=== PATIENT | female | born 1990 | race Caucasian/White ===

== ENCOUNTER 2020-04-07 22:24 | Emergency (ER) | payer MEDICAID ==
--- NOTE | 2020-04-07 23:06 | ER Document Report ---
ED General - General Chief Complaint: greenlandic Stated Complaint: CHEST PAIN Time Seen by Provider: 04/07/20 22:41 Primary Care Provider: JIAN CONLEY FNP-C [Primary Care Provider] - Follow up as needed - HPI Notes: Patient is a 30-year-old female who presents to the emergency department for evaluation of chest pain. She states she had in her left chest earlier today, thought it was just "hunger pains." She states she went out to dinner, had fried chicken. She states that on the way home she started having a severe heavy and sharp left-sided chest pain. It radiated up into her shoulder. She describes some associated shortness of breath. EMS administered aspirin, 2 sublingual nitroglycerin, which she states helped a small amount, as well as fentanyl, which resolved her pain. Patient states he has had pain similar to this in the past, but never this intense. She did feel some shortness of breath associated with it. She noted that her pain seemed to have gotten worse when her bra was removed. Patient states she did have a stress test approximately 1 year ago, and a negative heart catheterization approximately 5 years ago. - Related Data Allergies/Adverse Reactions: ketorolac [From Toradol] Allergy (Verified 04/07/20 22:56) prochlorperazine [From Compazine] Allergy (Verified 04/07/20 22:56) Home Medications: Zoloft, pro-air, Singulair, unknown anxiety medication Past Medical History - General Information source: Patient - Social History Smoking Status: Never Smoker Family History: CAD, DM, Hypertension, Other - "Blood clots" in grandfather, unsure where Patient has homicidal ideation: No Pulmonary Medical History: Reports: Hx Asthma EENT Medical History: Reports: Other - Seasonal allergies Psychiatric Medical History: Reports: Hx Anxiety, Hx Depression Past Surgical History: Reports: Hx Section Review of Systems - Review of Systems Cardiovascular: See HPI Respiratory: See HPI -: Yes All other systems reviewed and negative Physical Exam - Vital signs Vitals: Temp 98 F 04/07/20 22:25 - Notes Notes: This is an obese 30-year-old female who appears her stated age, no acute distress. Vital signs reviewed, please refer to chart. Head is normocephalic, atraumatic. Pupils equal round, reactive to light. Neck is supple without meningismus. Heart is regular rate and rhythm. Lungs are clear to auscultation bilaterally. Patient with pendulous breasts, tenderness to the left breast in the area of the patient's pain. I do not appreciate any skin changes or masses, but exam is limited by body habitus. Abdomen is soft, nontender, normoactive bowel sounds throughout. Extremities without cyanosis, clubbing. Posterior calves are nontender. Peripheral pulses are equal. Skin is warm and dry. Patient is awake, alert, neurological exam is nonfocal. Course - Re-evaluation Re-evalutation: 04/07/20 23:06 Patient presents to the emergency department for evaluation. This is likely breast pain. I talked to her at length about the fact that she should probably have a mammogram, that my physical exam was limited. She voiced understanding. Otherwise, her heart rate is mildly elevated. She does have a family history of blood clots. Will add d-dimer. I do not have a strong clinical suspicion at this time for pulmonary embolus. EKG is unremarkable, laboratory investigations pending. We will continue to monitor. 04/08/20 02:12 Patient's d-dimer is negative, laboratory investigations unremarkable, troponin undetectable x2. I do strongly suspect this is chest wall pain. She did have some breast tenderness. I encouraged her to follow-up and get a mammogram. She otherwise will be sent home with a prescription for anti-inflammatories and close follow-up. She is to return to the ED with worsening. 04/08/20 02:16 I was notified by telemetry that the patient's heart rate went up to 179. A strip was printed. To me this looks more like artifact. During this, the patient was up on the edge of the bed, talking on the phone, she had no complaints or concerns. No palpitations, no chest pain. Strip was mounted, again she is to follow-up. - Vital Signs Vital signs: Temp Pulse Resp BP Pulse Ox 98 F 23 H 113/88 H 100 04/07/20 22:25 04/08/20 00:01 04/08/20 00:01 04/08/20 00:01 - Laboratory Result Diagrams: 04/07/20 23:11 04/07/20 23:11 Laboratory results interpreted by me: 04/07/20 23:11 Sodium 135.8 L - Diagnostic Test Radiology reviewed: Reports reviewed Radiology results interpreted by me: 04/08/20 02:12 Chest X-Ray 04/07/20 22:41 IMPRESSION: 1. No acute pulmonary process identified. - EKG Interpretation by Me Additional EKG results interpreted by me: 04/07/20 23:05 Sinus mechanism, regular rate. Normal axis and intervals. No acute ST changes concerning for ischemia or infarction. Discharge - Discharge Clinical Impression: Chest wall pain, Breast pain, left Condition: Stable Disposition: HOME, SELF-CARE Instructions: Chest Pain of Unclear Cause ([facility]) Additional Instructions: Your pain seems to localize more to your breast. You should have a mammogram and follow-up. Your labs were normal today, your cardiac enzymes were negative twice. Your EKG does not show any acute changes. Take medication as prescrib ed. Follow-up with your primary care provider next week. Return to the emergency department with worsening or new concerning symptoms of any sort. Prescriptions: Naproxen [Naprosyn] 500 mg PO BID #20 tablet Referrals: JIAN CONLEY FNP-C [Primary Care Provider] - Follow up as needed
--- NOTE | 2020-04-07 23:14 | RADIOLOGY REPORT (SQ) ---
EXAM DESCRIPTION: XR CHEST 1 VIEW COMPLETED DATE/TME: 04/07/2020 22:41 CLINICAL HISTORY: Chest Pain COMPARISON: None. FINDINGS: Single frontal view of the chest. Cardiomediastinal silhouette: Normal size and contour. Lungs: No consolidation, pneumothorax, or pleural effusion. Bones: No acute osseous abnormality. Leads overlie the chest. Upper abdomen: No abnormality identified. IMPRESSION: 1. No acute pulmonary process identified.
[2020-04-07 23:28] LABS: ABSOLUTE EOSINOPHILS # (AUTO) 0.1 10^3/uL (0.0-0.6); ABSOLUTE LYMPHOCYTES (AUTO) 2.3 10^3/uL (0.5-4.7); ABSOLUTE MONOCYTES (AUTO) 0.6 10^3/uL (0.1-1.4); ABSOLUTE NEUT (AUTO) 4.6 10^3/uL (1.7-8.2); BASOPHILS % (AUTO) 0.6 % (0-2); EOSINOPHILS % (AUTO) 1.1 % (0-6); HEMATOCRIT 36.1 % (36.0-47.0); LYMPHOCYTES % (AUTO) 30.4 % (13-45); MEAN CORPUSCULAR HEMOGLOBIN 27.4 pg (27.0-33.4); MEAN CORPUSCULAR HGB CONC 33.3 g/dL (32.0-36.0); MEAN CORPUSCULAR VOLUME 82 fl (80-97); MONOCYTES % (AUTO) 8.1 % (3-13); PLATELET COUNT 180 10^3/uL (150-450); RED BLOOD COUNT 4.39 10^6/uL (3.72-5.28); RED CELL DISTRIBUTION WIDTH 13.5 % (11.5-14.0); SEGMENTED NEUTROPHILS % (AUTO) 59.8 % (42-78); TOTAL CELLS COUNTED % (AUTO) 100 %; WHITE BLOOD COUNT 7.7 10^3/uL (4.0-10.5)
[2020-04-07] MEDS ORDERED: OXYCODONE-ACETAMINOPHEN 5-325 MG TABLET PO ONE (23:38)
[2020-04-07 23:39] LABS: ALBUMIN 3.6 g/dL (3.5-5.0); ALKALINE PHOSPHATASE 55 U/L (38-126); ANION GAP 5 (5-19); ASPARTATE AMINO TRANSFERASE 14 U/L (14-36); BILIRUBIN,TOTAL 0.2 mg/dL (0.2-1.3); BLOOD UREA NITROGEN 10 mg/dL (7-20); CALCIUM 8.5 mg/dL (8.4-10.2); CARBON DIOXIDE 26 mmol/L (22-30); CHLORIDE 105 mmol/L (98-107); CREATINE KINASE 62 U/L (30-135); GLUCOSE 93 mg/dL (75-110); POTASSIUM 3.9 mmol/L (3.6-5.0)
[2020-04-07 23:50] LABS: CREATINE KINASE MB 0.45 ng/mL (<4.55); TROPONIN I < 0.012 ng/mL
[2020-04-08 02:28] VITALS: BP 153/90
--- NOTE | 2020-04-08 19:15 | EKG REPORT ---
SEVERITY:- NORMAL ECG - SINUS RHYTHM : Confirmed by: Carolin Redding MD 08-Apr-2020 19:14:27
== END 2020-04-08 02:28 | disposition home or self-care (01) ==
LOC: ER 22:24
DX: R07.89 Other chest pain (principal); N64.4 Mastodynia; R06.02 Shortness of breath; Z88.8 Allergy status to other drugs, medicaments and biological substances; Z79.899 Other long term (current) drug therapy; J45.909 Unspecified asthma, uncomplicated
CPT/HCPCS: 36415; 71045; 80053; 82550; 82553; 84484; 85025; 85379; 93005; 93010; 99285

== ENCOUNTER 2020-05-20 06:56 | Day surgery (SDC) | payer MEDICAID ==
[2020-05-20] MEDS ORDERED: PROPOFOL INJ 200 MG/20 ML VIAL IV ONE (08:12)
[2020-05-20] MEDS ORDERED: ONDANSETRON HCL INJ/PF 4 MG/2 ML SDV ONE (08:44)
--- NOTE | 2020-05-20 09:53 | Operative Report ---
Operative Report DATE OF SURGERY: 05/20/20 Operative Report: The risk, benefits and alternatives of the procedure including the risk of bleeding, perforation requiring surgery have been explained to the patient in detail and informed consent has been obtained. Patient is placed in a left, lateral decubital position. Timeout is called. Propofol medication is administered. Rectal examination is done which did not reveal any masses, tears or fissures. An Olympus videoscope was introduced into the patient's rectum. Scope was then carefully advanced all the way to the cecum. Cecum was identified by the usual anatomical landmarks including the ileocecal valve as well as the appendiceal office. Photodocumentation is obtained. Scope was then sequentially pulled back via the various segments of the colon including the ascending colon, hepatic flexure, transverse colon, splenic flexure, descending colon and finally into the rectosigmoid portions of the colon. Retroflexion maneuvers performed. The risks benefits and alternatives of the procedure explained to the patient in detail and informed consent is obtained.A GIF Olympus video scope was inserted into the patient's mouth and hypopharynx, the esophagus is identified intubated and insufflated ,the scope was then advanced through the esophagus stomach and duodenum, retroflexion maneuver is done ,the esophagus stomach and first and second portions of the duodenum examined PREOPERATIVE DIAGNOSIS: Change of bowel habits. Gastroesophageal reflux disease POSTOPERATIVE DIAGNOSIS: Gastritis status post biopsy. Left colon Also status post biopsy. right colon inflammation status post biopsy OPERATION: Colonoscopy with biopsy. EGD with biopsy SURGEON: MEGAN RODRIGUEZ ANESTHESIA: LMAC TISSUE REMOVED OR ALTERED: As noted above. COMPLICATIONS: None. ESTIMATED BLOOD LOSS: None. INTRAOPERATIVE FINDINGS: As noted above. PROCEDURE: Patient tolerated the procedure well. No immediate postprocedure complications are noted. Patient is discharged in good condition. Discharge date 05/20/2020. Discharge diet: Regular. Discharge activity: Regular. 2 to 3-week follow-up to discuss findings. Patient is instructed call the office or proceed to the emergency room should there be any further problems or questions. Wait on the pathology.
[2020-05-20 10:37] VITALS: BP 132/68
== END 2020-05-20 11:08 | disposition home or self-care (01) ==
LOC: END 06:56
PROVIDERS: ATTEND Internal Medicine Gastroenterology
DX: K29.50 Unspecified chronic gastritis without bleeding (principal); K52.9 Noninfective gastroenteritis and colitis, unspecified; K62.89 Other specified diseases of anus and rectum; K21.9 Gastro-esophageal reflux disease without esophagitis; J45.909 Unspecified asthma, uncomplicated; I10 Essential (primary) hypertension; J45.40 Moderate persistent asthma, uncomplicated; R03.0 Elevated blood-pressure reading, without diagnosis of hypertension; Z85.41 Personal history of malignant neoplasm of cervix uteri; Z03.818 Encounter for observation for suspected exposure to other biological agents ruled out
CPT/HCPCS: 43239; 45380; 87635; 88305 ×2; 00813; J2405; J2704; C9803; 813

== ENCOUNTER → 2020-06-24 | Outpatient (CLI) | payer MEDICAID ==
--- NOTE | 2020-06-24 12:12 | RADIOLOGY REPORT (SQ) ---
EXAM DESCRIPTION: NM HIDA SCAN WITH CCK IMAGES COMPLETED DATE/TIME: 06/24/2020 11:52 am REASON FOR STUDY: (R10.11)RIGHT UPPER QUADRANT PAIN R10.11 RIGHT UPPER QUADRANT PAIN COMPARISON: None. RADIONUCLIDE AND DOSE: DOSAGE RADIONUCLIDE: 4.15 millicuries Tc99m Mebrofenin. DOSAGE CCK: 2.5 micrograms. DOSAGE MORPHINE: Not required. The route of agent administration: Intravenous TECHNIQUE: Serial imaging right upper quadrant up to 60 minutes following injection of radionuclide. CCK injected after gallbladder visualized. RADIATION DOSE: 32 LIMITATIONS: None. FINDINGS: LIVER: Normal visualization without areas of photopenia. INTRAHEPATIC BILE DUCTS: Normal size and no delay in visualization. COMMON BILE DUCT: Normal without dilatation. GALLBLADDER: Normal visualization. Calculated ejection fraction of 32%. Normal range is greater th an 35%. PHYSICAL RESPONSE: Patients presenting complaint was reproduced. OTHER: No other significant finding. IMPRESSION: Mild biliary dyskinesia tube with the ejection fraction of 32% where 35% or greater is c onsidered normal. Patient's symptoms were reproduced with CCK administration. TECHNICAL DOCUMENTATION: JOB ID: [id number] 2010 [employer]- All Rights Reserved Reading location - IP/workstation name: [email or web address]
== END ==
LOC: RAD 07:23
PROVIDERS: ATTEND Internal Medicine Gastroenterology
DX: R10.11 Right upper quadrant pain (principal)
CPT/HCPCS: 78227; J2805; A9537; Q9969